=== PATIENT | female | born 1950 | race Caucasian/White ===

== ENCOUNTER 2019-01-14 06:48 | Inpatient (IN) | payer MEDICARE, OTHER ==
[2019-01-14 07:43] LABS: #Lymphocytes 0.8 thou/uL (1.20-3.40); #Monocytes 0.3 thou/uL (0.11-0.59); #Neutrophils 14.6 thou/uL (1.40-6.50); %Basophils 0.1 % (0.0-1.0); %Eosinophils 0.1 % (0.0-10.0); %Lymphocytes 5.1 % (21.0-51.0); %Monocytes 1.8 % (0.0-10.0); Hemoglobin 13.6 g/dL (12.0-16.0); Mean Corpuscular HGB CONC 33.4 g/dL (32.0-36.0); Mean Corpuscular Hemoglobin 31.1 pg (27.0-31.0); Mean Corpuscular Volume 93.2 fL (78.0-98.0); Platelet Count 427 thou/uL (130-400); RBC Distribution Width 10.9 % (11.5-14.5); Red Blood Cell (RBC) Count 4.38 mill/uL (4.20-5.40); White Blood Cell (WBC) Count 15.7 thou/uL (4.8-10.8)
[2019-01-14] MEDS ORDERED: Enoxaparin Sodium 80 MG/0.8 ML SYRINGE ONE (07:48)
[2019-01-14] MEDS ORDERED: Labetalol HCl 100 MG/20 ML VIAL ONE (07:49)
[2019-01-14 07:51] LABS: PTT 33.8 SEC (22.9-36.1)
--- NOTE | 2019-01-14 07:59 | RAD ---
EXAM: Portable chest PROVIDED CLINICAL HISTORY: Altered mental status COMPARISON: None FINDINGS: Cardiac and mediastinal silhouette is within normal limits. No focal consolidation, pleural fluid or pneumothorax evident. IMPRESSION: No evidence for an acute cardiopulmonary process.
[2019-01-14 08:06] LABS: ALT (SGPT) 17 U/L (8-55); AST (SGOT) 21 U/L (5-34); Alkaline Phosphatase 97 U/L (40-150); Anion Gap 17 mmol/L (10-20); BUN (Urea Nitrogen) 11 mg/dL (9.8-20.1); Bilirubin, Total 0.7 mg/dL (0.2-1.2); CK (CPK) 73 U/L (29-168); Calc. Creatinine Clearance 0 mL/min (70-130); Calcium 10.4 mg/dL (7.8-10.44); Carbon Dioxide 21 mmol/L (23-31); Chloride 92 mmol/L (98-107); Estimated GFR-MDRD 81; Globulin 3.5 g/dL (2.4-3.5); Glucose 137 mg/dL (80-115); Potassium 4.2 mmol/L (3.5-5.1); Protein, Total 8.5 g/dL (6.0-8.3); Sodium 126 mmol/L (136-145)
[2019-01-14] MEDS ORDERED: Ondansetron PF 4 MG/2 ML Vial ONE ×2 (08:06→08:51)
[2019-01-14] MEDS ORDERED: Aspirin Chewable 81 MG TAB ONE (10:28)
[2019-01-14] MEDS ORDERED: Ondansetron PF 4 MG/2 ML Vial IVP PRN ×2 (11:15→13:49)
[2019-01-14] MEDS ORDERED: Ondansetron ODT 4 MG TAB SL PRN (11:15)
[2019-01-14 12:21] VITALS: BMI 20.9
--- NOTE | 2019-01-14 13:21 | CT ---
CT HEAD WITHOUT CONTRAST: HISTORY: Left-sided weakness. COMPARISON: 03/14/2009 FINDINGS: No parenchymal hemorrhage. No extraaxial hematoma. No midline shift. The basilar cisterns are bone nt. Age-appropriate asymmetric atrophy, predominantly involving the frontal lobes. There is stable prominence of the extraaxial space along both frontal convexities. The calvarium is intact. Adequat e aeration of the sinuses and mastoid air cells. Stable calcification, likely extraaxial, along the left frontal and temporal convexities. IMPRESSION: No acute intracranial process. The results of the study were discussed with Dr. Del Rosario on 01/14/2019 at 7:47 a.m. CODE CR POS: OFF
--- NOTE | 2019-01-14 13:35 | CT ---
CT HEAD WITH CONTRAST: CT SOFT TISSUE NECK WITH CONTRAST: CT ANGIOGRAM HEAD: CT ANGIOGRAM NECK: HISTORY: Left-sided weakness. TECHNIQUE: A CT angiogram of the head and neck is performed in the axial plane. Three-dimensional reformatted i mages are submitted for interpretation. FINDINGS: CT HEAD: Cortical cool white matter differentiation is preserved. No pathologic enhancement of the brain parenchyma. CT SOFT TISSUE NECK: Bilateral ocular lenses are appropriately located. Both globes are intact. Re trobulbar fat is preserved. Symmetric attenuation of the optic nerves and ocular rectus muscles. Limited evaluation of the oral cavity due to dental amalgam artifact. Midline fatty [place] of the [place] is difficult to appreciate. The epiglottis has a normal caliber. The pre-epiglottic fat is pres erved. Symmetric attenuation of the salivary glands. Symmetric attenuation of the sternocleidomastoid muscl es. The thyroid gland is diminutive and may be congenitally or possibly surgically absent. No evidence of lymphadenopathy by size criteria. There are varying degrees of central canal stenosis and foraminal narrowing throughout the cervical s pine. The upper mediastinum is unremarkable. The visualized lung parenchyma are also unremarkable. CT ANGIOGRAM NECK: The aortic arch has appropriate enhancement and luminal diameter. Minimal athero sclerotic disease. RIGHT CAROTID: The right carotid artery origin has appropriate enhancement and luminal diameter. Th e common carotid artery, carotid bifurcation, and internal carotid artery have appropriate enhancemen t and luminal diameter. No significant stenosis based upon NASCET criteria. There is mild atheroscl erotic disease in the right carotid bifurcation. LEFT CAROTID: The left carotid artery origin has appropriate enhancement and luminal diameter. The left common carotid artery, carotid bifurcation, and internal carotid artery have appropriate enhance ment and luminal diameter. Minimal atherosclerosis involving the mid to distal common carotid artery . Both cervical vertebral arteries are patent throughout their course in the neck and are co-dominant. Bilateral subclavian arteries are unremarkable. CT ANGIOGRAM HEAD: Intracranial internal carotid arteries have appropriate enhancement and luminal d iameter. 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 The right A2 segment i s supplied via a patent anterior communicating artery. Bilateral A2 segments are unremarkable. The right A1 segment and the bilateral M1 segments have appropriate enhancement and luminal diameter. Th e proximal MCA branches are symmetric. POSTERIOR CIRCULATION: Bilateral PICA artery origins are unremarkable. Both vertebral arteries supp ly a normal caliber basilar artery. Bilateral P1 segments have appropriate enhancement and luminal d iameter. IMPRESSION: 1. No evidence of significant stenosis to the level of the elim ira of [place]. 2. No evidence of significant stenosis with regard to either cervical carotid artery, based upon NATASHA CET criteria. 3. The results of the study were discussed with Dr. Del Rosario on 01/14/2019 at 8:11 a.m. CODE CR POS: OFF
[2019-01-14] MEDS ORDERED: hydrALAZINE 20 MG/ML VIAL SLOW IVP PRN (13:49)
[2019-01-14] MEDS ORDERED: Dextrose 50% Abboject 50 ML SYRINGE SLOW IVP PRN (13:49)
[2019-01-14] MEDS ORDERED: Dextrose 5% in Water 1,000 ML IV PRN (13:49)
[2019-01-14] MEDS ORDERED: Acetaminophen 500 MG TAB PO PRN (13:49)
[2019-01-14] MEDS ORDERED: Ondansetron ODT 4 MG TAB PO PRN (13:49)
[2019-01-14] MEDS ORDERED: HumaLOG 300 UNITS/3 ML VIAL SC PRN (13:49)
[2019-01-14] MEDS ORDERED: ISOVUE-370 76%-LOCM 1 ML ONE (13:55)
[2019-01-14] MEDS ORDERED: Non-Formulary Item 1 EACH (Buspirone Hcl [Buspirone Hcl] 15 MG) PO SCH (21:00)
[2019-01-14] MEDS ORDERED: Insulin Glargine 17 UNITS in Pre-Filled Syringe 1 EACH SC SCH (21:00)
[2019-01-14] MEDS ORDERED: Atorvastatin Calcium 40 MG TAB PO SCH (21:00)
[2019-01-14] MEDS: Famotidine 20 MG TAB PO SCH (21:07)
[2019-01-14] MEDS: busPIRone HCl 10 MG TAB PO SCH (21:08)
--- NOTE | 2019-01-14 21:29 | HP ---
PRIMARY CARE PROVIDER: Aracelis Malhotra DO. CHIEF COMPLAINT: Passing out with left-sided weakness and difficulty speaking. HISTORY OF PRESENT ILLNESS: This is a 68-year-old female who presented to [facility] Emergency Department in transfer by EMS personnel after patient states she apparently passed out at her home while eating dinner at approximately 2000 hours, 01/13/2019. The patient states she suddenly passed out on her couch landing on her left side on the cushions conditions when she regained consciousness. The patient is unsure of the timeframe that she was passed out, however, noted that she had vomited on herself during the episode. The patient also noted that she was unable to move her left arm and left lower extremity and felt like they were asleep. The patient was attempting to maneuver off the couch when she apparently slipped onto the floor. She did not strike her head, but states she was crawling on the floor to find a phone when she apparently passed out a second time of unknown duration. The patient finally reached her daughter by approximately 3 a.m. to notify her of her situation. The patient states she was unable to move her left upper and lower extremity and had difficulty finding words. The patient noted several episodes of emesis, but denied taking her blood sugar at home in the context of known diabetes mellitus type 1, on insulin therapy. The patient states she took her short-acting insulin in preparation for her dinner, but did not take her normal Lantus dosing. The patient has noted intermittent numbness and tingling sensations of her extremities over the last several weeks with some unsteadiness of gait intermittently without specific pattern. The patient denied any recent falls, use of assistive devices, or prior similar events. The patient denied any travel history, recent fever, chills, visual changes, difficulty with swallowing or speech previously. The patient denied any loss of appetite or weight changes. EMS personnel arrived and the patient was noted with left-sided weakness with drift and brought to the emergency room for evaluation. The patient underwent general stroke protocol including CT with and without contrast showing no acute process. The patient received aspirin 324 mg in addition to Zofran and labetalol. The patient's left-sided deficits had improved during her observation in the emergency room at which point, the patient was transferred to the stroke unit for further evaluation. PAST MEDICAL HISTORY: 1. Hyperlipidemia. 2. Hypertension. 3. Hypothyroidism. 4. Diabetes mellitus type 1, insulin requiring with Lantus. PAST SURGICAL HISTORY: 1. Status post thyroidectomy. 2. Status post hysterectomy. PSYCHIATRIC HISTORY: Positive for anxiety. CURRENT MEDICATIONS: 1. Amlodipine 10 mg p.o. daily. 2. Lipitor 10 mg p.o. at bedtime. 3. BuSpar 15 mg p.o. b.i.d. 4. Lantus 17 units subcutaneously at bedtime. 5. Novolin R 4 units subcutaneously with meals. 6. Levothyroxine 75 mcg p.o. daily. 7. Zestril 20 mg p.o. daily. 8. Omeprazole 40 mg p.o. daily. ALLERGIES: NO KNOWN DRUG ALLERGIES. FAMILY HISTORY: No inheritable diseases per patient report. SOCIAL HISTORY: The patient resides in [place], [place]. Accompanied by her daughter and son-in-law in the hospital. Functional of all activities of daily living. No current alcohol, tobacco, or illicit drug use. REVIEW OF SYSTEMS: CONSTITUTIONAL: Negative for weight loss or gain, ability to conduct usual activities. SKIN: Negative for rash, itching. EYES: Negative for double vision, pain. ENT/MOUTH: Negative for nose bleeding, neck stiffness, pain, tenderness. CARDIOVASCULAR: Negative for palpitations, dyspnea on exertion, orthopnea. RESPIRATORY: Negative for shortness of breath, wheezing, cough, hemoptysis, fever or night sweats. GASTROINTESTINAL: Negative for poor appetite, abdominal pain, heartburn, nausea, vomiting, constipation, or diarrhea. GENITOURINARY: Negative for urgency, frequency, dysuria, nocturia. MUSCULOSKELETAL: Negative for pain, swelling. NEUROLOGIC/PSYCHIATRIC: Negative for anxiety, depression. ALLERGY/IMMUNOLOGIC: Negative for skin rash, bleeding tendency. Otherwise negative except as stated per HPI. PHYSICAL EXAMINATION: VITAL SIGNS: On admission, blood pressure 181/75, pulse 89, respiratory rate 18, temperature 97.8 degrees Fahrenheit, O2 saturation 99% on room air. GENERAL APPEARANCE: This is a 68-year-old female, alert and oriented x3, pleasant, responsive, in no acute distress. HEENT: Pupils are equal, round, reactive to light and accommodation. Extraocular muscles are intact. No scleral icterus. No conjunctival injection. Nares patent. OP is clear. Teeth in good repair. No facial asymmetry appreciated. NECK: Supple. No cervical adenopathy. No thyromegaly. No carotid bruits. No JVD appreciated. Cervical spine with full active and passive range of motion. No meningeal signs noted. CHEST: Lungs are clear to auscultation bilaterally. CARDIOVASCULAR: S1, S2 without noted murmur, rub, or gallop. ABDOMEN: Rounded, soft, nontender, and nondistended. Bowel sounds are positive in all 4 quadrants. There is no hepatosplenomegaly. No abdominal bruits. No rebound or guarding appreciated. EXTREMITIES: Warm and dry with fair turgor. No clubbing, cyanosis, or asymmetric edema appreciated. Pulses are palpable distally at the dorsalis pedis, posterior tibial, and popliteal arteries bilaterally. Capillary refill less than 2 seconds. NEUROLOGIC: Cranial nerves 2 through 12 are grossly intact. No focal or lateralizing signs appreciated. No facial asymmetry. Right-hand dominant. Not observed ambulatory during this exam. PERTINENT LABORATORY AND X-RAY FINDINGS: Sodium 126, potassium 4.2, chloride 92, CO2 of 21, BUN 11, creatinine 0.72, estimated GFR of 81, glucose 137, calcium 10.4. LFTs within normal limits. Troponin I negative x1. CBC showed a white blood cell count of 15.7, hemoglobin 14, hematocrit 41, platelet count 427 with 93% neutrophils. PT 13, INR 1.0, PTT 33.8. CT of the brain without contrast dated 01/14/2019 showed no acute intracranial process. CT angiogram of [place] of [place] showed no focal stenosis. EKG dated 01/14/2019 by my interpretation shows sinus mechanism with heart rates in the 80s. Normal R-wave progression noted in the precordial leads. Normal axis. No acute ST-T wave changes appreciated. Baseline artifact noted. ASSESSMENT AND PLAN: 1. Transient ischemic attack. Suspected given patient's history. We will continue general stroke protocol. Aspirin 81 mg daily. Check fasting lipid profile. MRI imaging of the brain to rule out subtle evidence of cerebrovascular accident. Check 2D transthoracic echocardiogram. Consider Neurology consultation given patient's presentation and history. Continue telemetry monitoring to rule out arrhythmia. Orthostatic vital signs obtained; however, no evidence of orthostasis. 2. Hyponatremia. Suspect secondary to hyperglycemia. Repeat sodium level in the a.m. 3. Diabetes mellitus type 1. Insulin sliding scale for reflexive coverage. Resume glargine insulin 17 units subcutaneously at bedtime. Serial Accu-Cheks before meals and at bedtime. 4. Hypothyroidism. Continue levothyroxine 75 mcg daily. Check TSH level in the a.m. 5. Hypertension. Labile currently. Resume home blood pressure regimen and titrate for optimal control. 6. Prophylaxis. Sequential compression devices while in bed. Pepcid 20 mg p.o. b.i.d.. 7. Code status is full. Surrogate medical decision maker is the patient's daughter. Job ID: [id number]
[2019-01-15 04:36] LABS: Anion Gap 14 mmol/L (10-20); BUN (Urea Nitrogen) 12 mg/dL (9.8-20.1); Calc. Creatinine Clearance 61 mL/min (70-130); Calcium 9.7 mg/dL (7.8-10.44); Carbon Dioxide 21 mmol/L (23-31); Cardiac Risk 2.1 (Less than 4.5); Chloride 94 mmol/L (98-107); Cholesterol 154 mg/dl (< 200 Desired); Estimated GFR-MDRD 68; Glucose 294 mg/dL (80-115); HDL Cholesterol 74 mg/dL (>60 Neg Risk); LDL Cholesterol, Calculated 66 mg/dL; Potassium 4.2 mmol/L (3.5-5.1); Sodium 125 mmol/L (136-145); Triglycerides 72 mg/dL (Less than 150)
[2019-01-15 04:59] LABS: Band 1 % (5-11); Hemoglobin 12.3 g/dL (12.0-16.0); Lymphocytes 30 % (21-51); MDiff Complete? YES; Mean Corpuscular HGB CONC 33.9 g/dL (32.0-36.0); Mean Corpuscular Hemoglobin 31.8 pg (27.0-31.0); Mean Corpuscular Volume 93.7 fL (78.0-98.0); Mean Platelet Volume 7.2 fL (7.4-10.4); Monocytes 6 % (0-10); Neutrophil 63 % (42-75); Platelet Count 400 thou/uL (130-400); RBC Distribution Width 11.1 % (11.5-14.5); Red Blood Cell (RBC) Count 3.88 mill/uL (4.20-5.40); White Blood Cell (WBC) Count 11.6 thou/uL (4.8-10.8)
[2019-01-15] MEDS ORDERED: Levothyroxine Sodium 75 MCG TAB PO SCH (09:00)
[2019-01-15] MEDS ORDERED: Amlodipine 10 MG TAB PO SCH (09:00)
[2019-01-15] MEDS ORDERED: Lisinopril 20 MG TAB PO SCH (09:00)
[2019-01-15] MEDS ORDERED: Aspirin 81 mg Enteric Coated Tablet PO SCH (09:00)
[2019-01-15] MEDS: busPIRone HCl 10 MG TAB PO SCH (10:23)
[2019-01-15] MEDS: Famotidine 20 MG TAB PO SCH (10:24)
--- NOTE | 2019-01-15 11:03 | MRI ---
MRI BRAIN WITHOUT CONTRAST: Date: 01/15/19 HISTORY: TIA. CORRELATION: CT brain 01/14/19. FINDINGS: No restricted diffusion is seen. No evidence of infarct, hemorrhage, midline shift, or abnormal extra -axial fluid collections noted. The ventricular size is normal and the basilar cisterns are patent. T he visualized paranasal sinuses and mastoid air cells are well aerated. IMPRESSION: No evidence of acute intracranial process. POS: [facility]
[2019-01-15] MEDS: HumaLOG 300 UNITS/3 ML VIAL SC PRN ×2 (12:34→17:13)
[2019-01-15 16:06] VITALS: BP 132/59; TEMP 97.7
--- NOTE | 2019-01-15 21:04 | CON ---
DATE OF CONSULTATION: 01/15/2019 Registered nurse accompanying me is Christophe Coughlin. CHIEF COMPLAINT: Stroke. HISTORY OF PRESENT ILLNESS: The patient and daughter gave report. The patient was eating supper late Tuesday evening around 8:30 or 9:00, that is what she remembers. She was going to eat on the couch and she woke up, she found herself lying sideways on the couch and she was covered in vomit. She could not feel her left arm and leg. She thought she could get up, but she could not get up and she crawled trying to make it and got to shred on, but again became unconscious, threw up and she lied there for a while. Called her daughter at 3 a.m. on Tuesday. Daughter was sleeping, missed her call and called her back at 6 a.m. She found her sitting on the couch, unable to speak or move, and EMS was called. When she got into the ER, she was better. Even now, her speech is slightly slower, but she recovered her strength on the left side and she has 90% recovery of her neurological function spontaneously. PREVIOUS MEDICAL HISTORY: Positive for diabetes. She has insulin dependent diabetes, hypertension, hyperlipidemia, and hypothyroidism. PAST SURGICAL HISTORY: Radioactive iodine ablation of thyroid and hysterectomy. PAST PSYCHIATRIC HISTORY: Positive for anxiety. MEDICATIONS: 1. Amlodipine. 2. Lipitor. 3. BuSpar. 4. Lantus. 5. Novolin insulin. 6. Levothyroxine. 7. Zestril. 8. Omeprazole. ALLERGIES: NO KNOWN DRUG ALLERGIES. FAMILY HISTORY: She is adopted. SOCIAL HISTORY: She worked as a BUSINESS PROFESSOR. She drinks alcohol occasionally, does not smoke, and lives by herself. LABORATORY WORKUP: White count 11.6, hemoglobin 12.3, hematocrit 36.3, platelets 400. Coagulation within normal limits. Sodium 125, potassium 4.2, chloride 94, bicarb 21, BUN 12, creatinine 0.84, glucose 294. Cholesterol and lipid profile within normal limits. TSH was 3.27. Her MRI scan was completed by the time of this report, which did not show any acute intracranial process. CT angiography was also reviewed and CTA showed no evidence of any stenosis in the vasculature. PHYSICAL EXAMINATION: VITAL SIGNS: Temperature 97.7, pulse 78, blood pressure 154/62, respiratory rate 16. GENERAL: Thin built, well-nourished lady, who is pleasant. CHEST: Clear vesicular breathing. CARDIOVASCULAR: S1 and S2 heard. No murmurs. ABDOMEN: Soft. NEUROLOGIC: Higher intellectual functions are normal with normal orientation to time, person and appropriate conversation. Her cranial nerve examination; normal extraocular movements. Pupils are 2 mm, reactive to light. Tongue midline. No atrophy noted. Normal sensation of face. No facial asymmetry noted. Normal hearing bilaterally. Motor examination; bulk normal, tone normal. Strength 5/5 throughout in iliopsoas, hamstrings, quadriceps, ankle dorsiflexion, plantar flexion, deltoid, biceps, triceps, wrist extension and flexion, finger extension and flexion bilaterally. Cerebellar, normal [id number] and [id number]. Gait exam was not tested. IMPRESSION: The patient is a 68-year-old lady with history of left-sided weakness and passing out on 2 occasions overnight and was brought to the ER. Nobody was there to witness any of the events. She did find herself in vomit. Her examination currently is normal except for delayed response slightly during conversation and very mild asymmetry for [id number]. Her MRI is negative. I suspect she might have had hyperglycemic event, which was not monitored carefully and she might have had a transient ischemic attack in association with it. Her blood sugars are still elevated at this time. RECOMMENDATIONS: 1. Please complete her stroke workup including echocardiogram. 2. I recommended the patient be on aspirin for stroke prophylaxis in future. She reported she was asked to stop it because she had skin bruising. 3. We will follow up tomorrow again. Job ID: [id number]
--- NOTE | 2019-01-16 04:26 | DIS ---
DATE OF ADMISSION: 01/14/2019 DATE OF DISCHARGE: 01/15/2019 DISCHARGE DIAGNOSES: 1. Syncopal episode. Etiology unclear. 2. Diabetes mellitus type 1, insulin requiring. 3. Hypothyroidism. 4. Hypertension. 5. Hyponatremia, mild. CONSULTATIONS: Dr. Mejia with Neurology Service. PERTINENT LABORATORY AND X-RAY FINDINGS: Sodium ranged between 125 to 126. Magnesium level 2.0. LFTs within normal limits. Total cholesterol 154, triglycerides 72, HDL 74, LDL 66. TSH 3.28. CBC showed a white blood cell count ranging between 11.[address] of the brain without contrast dated 01/14/2019, showed no acute intracranial process. CT angiogram of the head and neck dated 01/14/2019, showed no focal stenosis. Portable chest x-ray dated 01/14/2019, showed no acute cardiopulmonary process. MRI of the brain dated 01/15/2019, showed no acute intracranial process. 2D transthoracic echocardiogram dated 01/15/2019, showed ejection fraction of 55% to 60%. Diastolic dysfunction noted. Mild mitral and tricuspid regurgitation noted. HOSPITAL COURSE: The patient was admitted to the stroke unit after initially presenting with syncopal episode with left-sided weakness and concern for transient ischemic attack. The patient underwent general stroke protocol including neuroimaging with CT and MRI imaging of the brain. All studies were reviewed and negative without evidence of acute intracranial process or CVA. The patient was noted with mild hyponatremia with recommendations for fluid restriction for approximately 72 hours after discharge. Telemetry monitoring showed sinus mechanism without evidence of acute arrhythmia or dysrhythmia. The patient overall remained clinically stable with general stroke workup, however, no specific etiology was identified. The patient was evaluated by the Neurology Service with recommendations for low-dose aspirin therapy after discharge. I have examined the patient at the time of discharge and discussed followup instructions. The patient verbalized understanding and agreement, ready for discharge on 01/15/2019. DISCHARGE MEDICATIONS: 1. Norvasc 10 mg p.o. daily. 2. Lipitor 10 mg p.o. at bedtime. 3. BuSpar 15 mg p.o. b.i.d. 4. Glargine insulin 17 units subcutaneously at bedtime. 5. Novolin R 4 units subcutaneously t.i.d. with meals. 6. Levothyroxine 75 mcg p.o. daily. 7. Zestril 20 mg p.o. daily. 8. Omeprazole 40 mg p.o. daily. 9. Enteric-coated aspirin 81 mg p.o. daily. FOLLOWUP: The patient to follow up with Dr. Aracelis Malhotra within 7 days of discharge. The patient may follow up with Dr. Rafael Moreno and call his office for appointment time and date. CONDITION ON DISCHARGE: Stable. ACTIVITY: Ad-loretta. DIET: ADA. SPECIAL INSTRUCTIONS: Recommend repeat basic metabolic profile at first followup visit with primary care provider. CODE STATUS: Full. DISPOSITION: Home on 01/15/2019. Job ID: [id number]
[2019-01-16] MEDS ORDERED: SYNTHROID 75 MCG PO SCH (06:00)
[2019-01-16] MEDS ORDERED: PRILOSEC 40 MG PO SCH (09:00)
== END 2019-01-15 18:50 | disposition home or self-care (01) | DRG 312 ==
LOC: ERS 06:48 → 2SE 09:11
PROVIDERS: ADMIT Family Medicine; ATTEND Family Medicine
DX: R55 Syncope and collapse (principal); E87.1 Hypo-osmolality and hyponatremia; E10.9 Type 1 diabetes mellitus without complications; E03.9 Hypothyroidism, unspecified; E78.5 Hyperlipidemia, unspecified; I10 Essential (primary) hypertension; F41.9 Anxiety disorder, unspecified; R53.1 Weakness; Z79.4 Long term (current) use of insulin; Z90.710 Acquired absence of both cervix and uterus
CPT/HCPCS: 36415; 36416; 70450; 70496; 70498; 70551; 71045; 80048; 80053; 80061; 82550; 83735; 84443; 84484; 85007; 85025; 85027; 85610; 85730; 93005; 93306; 96374; J1650; J1815; J2405